=== PATIENT | female | born 1975 | race Caucasian/White ===

== ENCOUNTER → 2017-05-04 | Outpatient (CLI) | payer OTHER ==
--- NOTE | 2017-05-04 18:18 | CT ---
EXAMINATION TYPE: CT iac wo con DATE OF EXAM: 05/04/2017 COMPARISON: NONE HISTORY: Pre insertion Left sided cochlear implant CT DLP: 142.7mGycm Automated exposure control for dose reduction was used. FINDINGS: There is surgery on the right side in the right mastoid sinus with an implant. The external auditory canals are intact. There is mucosal thickening in the sphenoid sinus. I see no focal bone d estruction in the sphenoid sinus. Temporomandibular joints appear normal. There is normal aeration of the left mastoid sinus. There is bilateral normal aeration of the epitympanic recess. There is no sign of a cerebellopontine angle mas s. Internal auditory canals are symmetric. There is normal aeration of the middle ear cavity bilatera lly. IMPRESSION: Right sided cochlear implant. Sphenoid sinusitis. Otherwise negative exam. Implant is new compared to old CT scan of the brain of 10/27/2015.
== END | disposition home or self-care (01) ==
LOC: RADCTMAIN 17:08
PROVIDERS: ATTEND Otolaryngology
DX: J32.3 Chronic sphenoidal sinusitis (principal); Z96.21 Cochlear implant status
CPT/HCPCS: 70480

== ENCOUNTER → 2018-06-27 | Outpatient (CLI) | payer OTHER, MEDICARE ==
--- NOTE | 2018-06-27 10:28 | US ---
EXAMINATION TYPE: US pelvis complete transvag DATE OF EXAM: 06/27/2018 COMPARISON: NONE CLINICAL HISTORY: R10.2 Pelvic pain. Right side pain after intercourse TECHNIQUE: . Transabdominal sonographic images of the pelvis were acquired. Transvaginal sonographi c images were medically necessary to better assess the following anatomy: Uterus and ovaries Date of LMP: 06/26/2018 EXAM MEASUREMENTS: Uterus: 9.5 x 4.7 x 5.2 cm Endometrial Stripe: 0.6 cm Right Ovary: 3.1 x 2.4 x 2.0 cm Left Ovary: 2.5 x 2.8 x 1.1 cm 1. Uterus: Anteverted Heterogeneous myometrium 2. Endometrium: wnl 3. Right Ovary: Complex area visualized measuring 1.3 x 1.2 x 14 cm, possible hemorrhagic cyst vs ot her 4. Left Ovary: wnl 5. Bilateral Adnexa: wnl 6. Posterior cul-de-sac: wnl IMPRESSION: 1. Complex cyst right ovary may reflect hemorrhagic cyst. Lesion of other etiology not excluded. Foll ow-up study in 6 weeks is recommended.
== END | disposition home or self-care (01) ==
LOC: RADUSWWP 09:37
PROVIDERS: ATTEND Obstetrics & Gynecology
DX: N83.201 Unspecified ovarian cyst, right side (principal)
CPT/HCPCS: 76830; 76856

== ENCOUNTER → 2018-08-26 | Outpatient (CLI) | payer OTHER, MEDICARE ==
--- NOTE | 2018-08-26 10:59 | US ---
EXAMINATION TYPE: US pelvis complete transvag DATE OF EXAM: 08/26/2018 COMPARISON: June 27, 2018 CLINICAL HISTORY: N83.0 Previous ovarian cyst. no pain. abnormal bleeding. hx of ovarian cysts. TECHNIQUE: Transvaginal (TV) and Transabdominal (TA) . Transabdominal sonographic images of the pel vis were acquired. Transvaginal sonographic images were medically necessary to better assess the fol lowing anatomy: Endometrium Date of LMP: 08/18/2018, EXAM MEASUREMENTS: Uterus: 12.4 x 6.3 x 4.8 cm Endometrial Stripe: 0.9 cm Right Ovary: 3.7 x 2.1 x 2.2 cm Left Ovary: 3.0 x 1.5 x 1.0 cm 1. Uterus: Anteverted wnl 2. Endometrium: fluid seen. Echogenic vascular lesion- 1.1 x 0.7 x 0.6 cm 3. Right Ovary: Dominant follicle seen - 1.9 x 1.9 x 1.9 cm 4. Left Ovary: wnl 5. Bilateral Adnexa: wnl 6. Posterior cul-de-sac: no free fluid Cervix- fluid seen in cervical canal IMPRESSION: 1. Endometrial lesion suspected. Correlate with hysteroscopy. 2. Right ovarian dominant follicle
== END | disposition home or self-care (01) ==
LOC: RADUSWWP 10:05
PROVIDERS: ATTEND Obstetrics & Gynecology
DX: N83.01 Follicular cyst of right ovary (principal)
CPT/HCPCS: 76830; 76856

== ENCOUNTER 2018-10-08 11:26 | Day surgery (SDC) | payer MEDICARE, OTHER ==
[2018-10-04 15:27] VITALS: BMI 24.5
[~2018-10-08 11:26] MED LIST: DEXAMETHASONE SOD PHOSPHATE 10 MG/ML 1 ML VIAL IV ONE; HYDROmorphone 1 MG/ML 1 ML SYRINGE IVP PRN; LACTATED RINGERS 1,000 ML IV SCH; LIDOCAINE 1% 20 ML VIAL (10MG/ML) FOR IV START INTRADERMA PRN; MIDAZOLAM 2 MG/2 ML VIAL IV PRN; ONDANSETRON 4 MG/2 ML VIAL IVP ONE; Pre Op ABX Message 1 EACH MISC MISCELLANE ONE; fentaNYL (PF) 50 MCG/ML 2 ML AMP IV PRN
[2018-10-08] MEDS ORDERED: fentaNYL (PF) 50 MCG/ML 2 ML AMP ONE (13:19)
[2018-10-08] MEDS ORDERED: SUCCINYLCHOLINE CHLORIDE 100 MG/5 ML SYR IV ONE (13:19)
[2018-10-08] MEDS ORDERED: PROPOFOL 10 MG/ML 20 ML VIAL IV ONE (13:19)
[2018-10-08] MEDS ORDERED: LIDOCAINE 1% INJ 10MG/ML (20 ML MDV) ONE (13:19)
[2018-10-08] MEDS ORDERED: KETOROLAC 30 MG/ML 1 ML VIAL ONE (13:19)
[2018-10-08] MEDS ORDERED: MIDAZOLAM 2 MG/2 ML VIAL ONE (13:19)
--- NOTE | 2018-10-08 13:43 | P.OP ---
Date of Procedure: 10/08/18 Preoperative Diagnosis: Abnormal ultrasound Postoperative Diagnosis: Same with proliferative endometrium Procedure(s) Performed: D&C with hysteroscopy Anesthesia: JOSSUE Surgeon: Camron Gilbert Estimated Blood Loss (ml): 10 Pathology: other (Uterine curettings) Condition: stable Disposition: same day Operative Findings: Await final tissue pathology Description of Procedure: Patient was taken to the operating suite where a general anesthetic was found be adequate. She was prepped and draped in the normal sterile fashion and placed in dorsal lithotomy position. Initially a weighted speculum was inserted into the vagina and the anterior lip of the cervix was identified and grasped with a Allis clamp. It was then sounded to 9 cm. It did have a prolapsed to it and it prolapsed to the vaginal introitus. Once this was accomplished camera was inserted proliferative endometrium was noted, no other lesions could be visualized. She did start her period yesterday. Once this was completed camera was removed and sharp curettings of the endometrium were obtained. All this tissue was collected and placed on Telfa and sent to pathology for evaluation. All instruments were then removed. Sponge, lap, needle counts were all correct 2. Patient was then taken to the recovery room in stable and satisfactory condition. Plan - Discharge Summary New Discharge Prescriptions: No Action Omeprazole [PriLOSEC] 20 mg PO HS Discharge Medication List Omeprazole [PriLOSEC] 20 mg PO HS 10/04/18 [History] Follow up Appointment(s)/Referral(s): Camron Gilbert DO [Doctor of Osteopathic Medicine] - 1 Week Activity/Diet/Wound Care/Special Instructions: No heavy lifting, limit stairs and driving and pelvic rest today. If any high temperatures, heavy bleeding, or severe pain call my office Discharge Disposition: HOME SELF-CARE
[2018-10-08 14:05] VITALS: RESP 16; TEMP 97.8
[2018-10-08 15:51] VITALS: BP 112/69; PULSE 59
== END 2018-10-08 16:37 | disposition home or self-care (01) ==
LOC: OR 11:26
PROVIDERS: ATTEND Obstetrics & Gynecology
DX: N84.0 Polyp of corpus uteri (principal); F17.210 Nicotine dependence, cigarettes, uncomplicated; K21.9 Gastro-esophageal reflux disease without esophagitis; Z79.899 Other long term (current) drug therapy; Z88.5 Allergy status to narcotic agent; Z96.21 Cochlear implant status
CPT/HCPCS: 81025; 88305; 58558; J2250; J1100; J2405; J2001; J3010; J1885; J1170; J0330; J2704

== ENCOUNTER → 2018-11-01 | Outpatient (CLI) | payer MEDICARE ==
--- NOTE | 2018-11-01 12:48 | US ---
EXAMINATION TYPE: US pelvis complete transvag DATE OF EXAM: 11/01/2018 COMPARISON: CLINICAL HISTORY: R10.2 Pelvic pain. Irregular menses. D&C October 08 2018 TECHNIQUE: Transvaginal (TV) and Transabdominal (TA) . Transabdominal sonographic images of the pel vis were acquired. Transvaginal sonographic images were medically necessary to better assess the fol lowing anatomy: Endometrium Date of LMP: 10/29/2018, EXAM MEASUREMENTS: Uterus: 9.5 x 5.3 x 4.2 cm Endometrial Stripe: 0.2 cm Right Ovary: 3.3 x 2.3 x 1.3 cm Left Ovary: 2.8 x 1.5 x 1.0 cm 1. Uterus: Anteverted Appears heterogenous 2. Endometrium: wnl 3. Right Ovary: wnl, only seen transabdominally 4. Left Ovary: wnl, only seen transabdominally 5. Bilateral Adnexa: wnl 6. Posterior cul-de-sac: no free fluid IMPRESSION: 1. No distinct abnormality appreciated.
== END | disposition home or self-care (01) ==
LOC: RADUSWWP 08:45
PROVIDERS: ATTEND Obstetrics & Gynecology
DX: R10.2 Pelvic and perineal pain (principal)
CPT/HCPCS: 76830; 76856

== ENCOUNTER → 2021-10-31 | Outpatient (CLI) | payer BC, MEDICARE ==
--- NOTE | 2021-10-31 15:37 | US ---
EXAMINATION TYPE: US transvaginal DATE OF EXAM: 10/31/2021 COMPARISON: 11/01/2018 pelvic ultrasound. CLINICAL HISTORY: N92.1 MENORRHAGIA. Bleeding for 2 months TECHNIQUE: Transvaginal (TV). EXAM MEASUREMENTS: Uterus: 10.7 x 5.1 x 5.6 cm Endometrial Stripe: 1.6 cm Right Ovary: Not visualized due to excessive bowel gas Left Ovary: Not visualized due to excessive bowel gas 1. Uterus: Anteverted Appears heterogenous. Tiny Echogenic focus seen 0.29 cm lower uterine level suspect focal calcification 2. Endometrium: Appears bulky and abnormal. 3. Right Ovary: Obscured by overlying bowel gas 4. Left Ovary: Obscured by overlying bowel gas 5. Bilateral Adnexa: wnl 6. Posterior cul-de-sac: wnl IMPRESSION: Abnormal thickening to the endometrium. Consider dilatation and curettage to further eval uate.
== END | disposition home or self-care (01) ==
LOC: RADUSWWP 14:55
PROVIDERS: ATTEND Family Medicine
DX: R93.89 Abnormal findings on diagnostic imaging of other specified body structures (principal)
CPT/HCPCS: 76830

== ENCOUNTER 2025-02-02 08:30 | Emergency (ER) | payer BC, MEDICARE ==
[2025-02-02 08:45] VITALS: RESP 18
--- NOTE | 2025-02-02 08:56 | ED ---
Female Urogenital HPI - General Chief complaint: Urogenital Stated complaint: urogenital Time Seen by Provider: 02/02/25 08:47 Source: patient, family, RN notes reviewed Mode of arrival: ambulatory Limitations: language barrier - History of Present Illness Initial comments: This is a 49-year-old female who presents to the emergency department for left-sided pelvic pain. States that it started 2 days ago but seems to be getting progressively worse. She does have some radiation of pain into the back and associated nausea. When she has had pelvic pain in the past states that usually resolves with ibuprofen, however she did not get any relief from this. Denies any history of kidney stones or history of pain this severe in the past. MD Complaint: pelvic pain - Related Data Home Medications Medication Instructions Recorded Confirmed Ibuprofen [Motrin Ib] 800 mg PO Q8H PRN 02/02/25 02/02/25 Previous Rx's Medication Instructions Recorded Ketorolac [Toradol] 10 mg PO Q6HR PRN #15 tab 02/02/25 Ondansetron Odt [Zofran Odt] 4 mg PO Q8HR PRN #15 tab 02/02/25 Allergies Allergy/AdvReac Type Severity Reaction Status Date / Time codeine Allergy Rash/Hives Verified 02/02/25 11:00 Review of Systems ROS Statement: Those systems with pertinent positive or pertinent negative responses have been documented in the HPI. ROS Other: All systems not noted in ROS Statement are negative. Past Medical History Past Medical History: No Reported History Additional Past Medical History / Comment(s): cochlear implants, History of Any Multi-Drug Resistant Organisms: None Reported Past Surgical History: No Surgical Hx Reported Additional Past Surgical History / Comment(s): Cochlear implants, uterine ablation, Past Anesthesia/Blood Transfusion Reactions: No Reported Reaction Past Psychological History: No Psychological Hx Reported Smoking Status: Current every day smoker Past Alcohol Use History: None Reported Past Drug Use History: None Reported - Past Family History Mother Family Medical History: CVA/TIA General Exam Limitations: language barrier General appearance: alert, in distress Respiratory exam: Present: normal lung sounds bilaterally. Absent: respiratory distress, wheezes, rales, rhonchi, stridor Cardiovascular Exam: Present: regular rate, normal rhythm GI/Abdominal exam: Present: soft, tenderness (Left pelvic). Absent: distended Neurological exam: Present: alert, oriented X3, CN II-XII intact Psychiatric exam: Present: normal affect, normal mood Skin exam: Present: warm, dry, intact, normal color. Absent: rash Course Vital Signs 02/02/25 02/02/25 08:39 14:08 Temperature 97.6 F 98.2 F Pulse Rate 69 66 Respiratory 18 18 Rate Blood Pressure 110/74 118/67 O2 Sat by Pulse 97 98 Oximetry Medical Decision Making - Medical Decision Making This is a 49 year old female who presents to the emergency department for left sided abdominal/pelvic pain. Was pt. sent in by a medical professional or institution? @ -No Did you speak to anyone other than the patient for history? @ -No Did you review nursing and triage notes? @ -Yes, and I agree, it is accurate with regards to the patient's symptoms. Were old charts reviewed? @ -No Differential Diagnosis? @ -Differential Abdominal Pain Women: Appendicitis, Cholecystitis, diverticulosis, ischemic bowel, pancreatitis, hepatitis, UTI, gastroenteritis, AAA, incarcerated hernia, bowel obstruction, constipation, inflammatory bowel, hepatitis, peptic ulcer disease, splenic infarction, perforated viscus, vulvitis, ovarian torsion, PID, kidney stone, placenta abruption, this is not meant to be an all-inclusive list EKG interpreted by me (3pts min.)? @ -Not obtained X-rays interpreted by me (1pt min.)? @ -Not obtained CT interpreted by me (1pt min.)? @ -CT scan of the abdomen and pelvis obtained. My interpretation identifies fat stranding in the left lower quadrant. U/S interpreted by me (1pt. min.)? @ -Transvaginal ultrasound obtained. My interpretation identifies no evidence of an ovarian torsion. What testing was considered but not performed? (CT, X-rays, U/S, labs)? Why? @ -None What meds were considered but not given? Why? @ -None Did you discuss the management of the patient with other professionals? @ -Yes, Dr. Anderson, [employer], who advised that the CT findings are likely related to a ruptured hemorrhagic cyst and this should resolve on its own in the next couple of days. He advised NSAIDs for treatment. Did you reconcile home meds? @ -No Was smoking cessation discussed for >3mins.? @ -I discussed smoking cessation for greater than 3 minutes. The risk of smoking were discussed with the patient including but not limited to risks of cancer, stroke, coronary artery disease and COPD. Also discussed with patient were multiple methods of quitting smoking. Lastly we discussed the financial cost of smoking. Was critical care preformed (if so, how long)? @ -No Were there social determinants of health that impacted care today? How? (Homelessness, low income, unemployed, alcoholism, drug addiction, transportation, low edu. Level, literacy, decrease access to med. care, long term, rehab)? @ -No Was there de-escalation of care discussed even if they declined? (Discuss DNR or withdrawal of care, Hospice)? @ -No What co-morbidities impacted this encounter? (DM, HTN, Smoking, COPD, CAD, Cancer, CVA, Hep., AIDS, mental health diagnosis, sleep apnea, morbid obesity)? @ -Smoking Was patient admitted / discharged? @ -Discharged. I had wanted to give the patient IV pain medication and fluids, however she declined an IV or any IM medication. However she was agreeable to the lab work. Lab work unremarkable. Urinalysis demonstrates occasional bacteria and large leukocyte esterase, however it is grossly contaminated. Transvaginal ultrasound obtained revealing a simple right-sided ovarian cyst and a thickened endometrium. However, there is nothing to explain the left-sided pain. She did continue to be in severe pain and a CT scan was subsequently obtained. This identified complex fluid in the posterior cul-de-sac with fat stranding changes in the left lower quadrant surrounding the left ovary and colon. They advised the possibility of a ruptured hemorrhagic ovarian cyst versus inflammation/infectious changes. Case discussed with Dr. Anderson, [employer], who advised that it is likely related to a ruptured ovarian cyst and symptoms should improve in a couple of days. He advised NSAIDs as the best treatment option. This was discussed with the patient who is in agreement with this plan. Rx for Toradol and Zofran provided with dosing instructions reviewed. Advised follow up with her [employer] if symptoms do not improve. Patient discharged home in stable condition. Case discussed with ED attending, Dr. Chery. Return precautions reviewed in depth, the patient is instructed to return to the emergency department with any new, worsening, or concerning symptoms. Patient verbalized understanding. Undiagnosed new problem with uncertain prognosis? @ -None Drug Therapy requiring intensive monitoring for toxicity (Heparin, Nitro, Insulin, Cardizem)? @ -None Were any procedures done? @ -None Diagnosis/symptom? @ -Ruptured hemorrhagic ovarian cyst Acute, or Chronic, or Acute on Chronic? @ -Acute Uncomplicated (without systemic symptoms) or Complicated (systemic symptoms)? @ -Uncomplicated Side effects of treatment? @ -None Exacerbation, Progression, or Severe Exacerbation] @ -Not applicable Poses a threat to life or bodily function? @ -No - Lab Data Result diagrams: 02/02/25 09:45 02/02/25 09:45 Lab Results 02/02/25 02/02/25 02/02/25 Range/Units 09:45 09:45 09:45 WBC 8.1 (3.8-10.6) k/uL RBC 4.57 (3.80-5.40) m/uL Hgb 13.7 (11.4-16.0) gm/dL Hct 41.9 (34.0-46.0) % MCV 91.8 (80.0-100.0) fL MCH 30.0 (25.0-35.0) pg MCHC 32.6 (31.0-37.0) g/dL RDW 12.5 (11.5-15.5) % Plt Count 243 (150-450) k/uL MPV 7.9 Neutrophils % 77 % Lymphocytes % 18 % Monocytes % 3 % Eosinophils % 1 % Basophils % 0 % Neutrophils # 6.2 (1.3-7.7) k/uL Lymphocytes # 1.4 (1.0-4.8) k/uL Monocytes # 0.3 (0-1.0) k/uL Eosinophils # 0.1 (0-0.7) k/uL Basophils # 0.0 (0-0.2) k/uL Sodium 136 L (137-145) mmol/L Potassium 4.2 (3.5-5.1) mmol/L Chloride 106 (98-107) mmol/L Carbon Dioxide 23 (22-30) mmol/L Anion Gap 7 mmol/L BUN 9 (7-17) mg/dL Creatinine 0.54 (0.52-1.04) mg/dL Est GFR (CKD-EPI)AfAm >90 (>60 ml/min/1.73 sqM) Est GFR (CKD-EPI)NonAf >90 (>60 ml/min/1.73 sqM) Glucose 92 (74-99) mg/dL Plasma Lactic Acid Eben (0.7-2.0) mmol/L Calcium 9.2 (8.4-10.2) mg/dL Total Bilirubin 1.4 H (0.2-1.3) mg/dL AST 14 (14-36) U/L ALT 9 (4-34) U/L Alkaline Phosphatase 56 (38-126) U/L Total Protein 6.8 (6.3-8.2) g/dL Albumin 3.8 (3.5-5.0) g/dL HCG, Quant <2.4 mIU/mL Urine Color Light Yellow Urine Appearance Cloudy H (Clear) Urine pH 6.0 (5.0-8.0) Ur Specific Wall 1.020 (1.001-1.035) Urine Protein Negative (Negative) Urine Glucose (UA) Negative (Negative) Urine Ketones Negative (Negative) Urine Blood Negative (Negative) Urine Nitrite Negative (Negative) Urine Bilirubin Negative (Negative) Urine Urobilinogen <2.0 (<2.0) mg/dL Ur Leukocyte Esterase Large H (Negative) Urine WBC 2 (0-5) /hpf Ur Squamous Epith Cells 20 H (0-4) /hpf Urine Bacteria Occasional H (None) /hpf Urine Mucus Many H (None) /hpf 02/02/25 Range/Units 09:45 WBC (3.8-10.6) k/uL RBC (3.80-5.40) m/uL Hgb (11.4-16.0) gm/dL Hct (34.0-46.0) % MCV (80.0-100.0) fL MCH (25.0-35.0) pg MCHC (31.0-37.0) g/dL RDW (11.5-15.5) % Plt Count (150-450) k/uL MPV Neutrophils % % Lymphocytes % % Monocytes % % Eosinophils % % Basophils % % Neutrophils # (1.3-7.7) k/uL Lymphocytes # (1.0-4.8) k/uL Monocytes # (0-1.0) k/uL Eosinophils # (0-0.7) k/uL Basophils # (0-0.2) k/uL Sodium (137-145) mmol/L Potassium (3.5-5.1) mmol/L Chloride (98-107) mmol/L Carbon Dioxide (22-30) mmol/L Anion Gap mmol/L BUN (7-17) mg/dL Creatinine (0.52-1.04) mg/dL Est GFR (CKD-EPI)AfAm (>60 ml/min/1.73 sqM) Est GFR (CKD-EPI)NonAf (>60 ml/min/1.73 sqM) Glucose (74-99) mg/dL Plasma Lactic Acid Eben 1.0 (0.7-2.0) mmol/L Calcium (8.4-10.2) mg/dL Total Bilirubin (0.2-1.3) mg/dL AST (14-36) U/L ALT (4-34) U/L Alkaline Phosphatase (38-126) U/L Total Protein (6.3-8.2) g/dL Albumin (3.5-5.0) g/dL HCG, Quant mIU/mL Urine Color Urine Appearance (Clear) Urine pH (5.0-8.0) Ur Specific Wall (1.001-1.035) Urine Protein (Negative) Urine Glucose (UA) (Negative) Urine Ketones (Negative) Urine Blood (Negative) Urine Nitrite (Negative) Urine Bilirubin (Negative) Urine Urobilinogen (<2.0) mg/dL Ur Leukocyte Esterase (Negative) Urine WBC (0-5) /hpf Ur Squamous Epith Cells (0-4) /hpf Urine Bacteria (None) /hpf Urine Mucus (None) /hpf - Radiology Data Radiology results: report reviewed, image reviewed Disposition Clinical Impression: Ruptured cyst of left ovary, Hemorrhagic cyst of left ovary, Nicotine depend ence Disposition: HOME SELF-CARE Instructions (If sedation given, give patient instructions): Ovarian Cyst (ED), Ruptured Ovarian Cyst (ED) Additional Instructions: Return to the emergency department with any new, worsening, or concerning symptoms. Take the Toradol with Tylenol as needed for pain relief. If you choose to take the Toradol, do not take any other anti-inflammatories such as ibuprofen, take one or the other. Take the Zofran up to every 8 hours as needed for nausea and vomiting. Contact Dr. Anderson for a follow-up appointment if your symptoms do not improve. Prescriptions: Ketorolac [Toradol] 10 mg PO Q6HR PRN #15 tab PRN Reason: Pain Ondansetron Odt [Zofran Odt] 4 mg PO Q8HR PRN #15 tab PRN Reason: Nausea And Vomiting Is patient prescribed a controlled substance at d/c from ED?: No Referrals: Brandon Berkowitz DO [Primary Care Provider] - 1-2 days Time of Disposition: 13:47
[2025-02-02] MEDS: HYDROmorphone 0.5 MG/0.5 ML SYRINGE IVP STA (09:47)
[2025-02-02] MEDS: ONDANSETRON 4 MG/2 ML VIAL IVP STA (09:47)
[2025-02-02] MEDS: KETOROLAC 15 MG/ML 1 ML VIAL IVP STA (09:47)
[2025-02-02] MEDS: LORazepam 1 MG TAB PO STA (09:48)
[2025-02-02] MEDS: SODIUM CHLORIDE 0.9% 1,000 ML IV ONE (09:48)
[2025-02-02 09:55] LABS: Basophils % (A) 0 %; Eosinophils # (A) 0.1 k/uL (0-0.7); Eosinophils % (A) 1 %; HCT 41.9 % (34.0-46.0); HGB 13.7 gm/dL (11.4-16.0); Lymphocytes # (A) 1.4 k/uL (1.0-4.8); Lymphocytes % (A) 18 %; MCHC 32.6 g/dL (31.0-37.0); MCV 91.8 fL (80.0-100.0); Mean Platelet Volume 7.9; Monocytes # (A) 0.3 k/uL (0-1.0); Monocytes % (A) 3 %; Neutrophils # (A) 6.2 k/uL (1.3-7.7); Neutrophils % (A) 77 %; Platelet Count 243 k/uL (150-450); RBC 4.57 m/uL (3.80-5.40); RDW 12.5 % (11.5-15.5); WBC 8.1 k/uL (3.8-10.6)
--- NOTE | 2025-02-02 09:59 | US ---
EXAMINATION TYPE: US transvaginal DATE OF EXAM: 02/02/2025 COMPARISON: CLINICAL INDICATION: Female, 49 years old with history of Left sided pelvic pain; Left side pain, hx endometrial ablation March 2024. TECHNIQUE: Transvaginal (TV). Transvaginal grayscale sonographic images of the pelvis were acquired. Doppler imaging: Color Doppler Images were obtained. Spectral doppler images were obtained. FINDINGS: Date of LMP: 08/2024, EXAM MEASUREMENTS: Uterus: 9.1 x 5.3 x 2.6 cm Endometrial Stripe: 1.4 cm Right Ovary: 3.8 x 2.6 x 2.0 cm Left Ovary: 2.1 x 0.9 x 1.0 cm 1. Uterus: Anteverted Heterogenous 2. Endometrium: Appears thickened and heterogenous 3. Right Ovary: Anechoic lesion = 2.6 x 2.6 x 2.0 cm 4. Left Ovary: wnl Spectral, color and waveform doppler imaging shows good arterial and venous flow within the ovaries ; there is no evidence for ovarian torsion. 5. Bilateral Adnexa: no free fluid 6. Posterior cul-de-sac: trace free fluid seen IMPRESSION: 1. Thickened endometrium. 2. Simple appearing cyst right ovary. O-RADS 2021 [email or web address] [facility], , 02/02/2025 9:57 AM
[2025-02-02 10:11] LABS: ALT 9 U/L (4-34); AST 14 U/L (14-36); African American GFR (CKD) >90 (>60 ml/min/1.73 sqM); Albumin 3.8 g/dL (3.5-5.0); Alkaline Phosphatase 56 U/L (38-126); Anion Gap 7 mmol/L; Blood Urea Nitrogen 9 mg/dL (7-17); Calcium 9.2 mg/dL (8.4-10.2); Carbon Dioxide 23 mmol/L (22-30); Chloride 106 mmol/L (98-107); Glucose 92 mg/dL (74-99); Non-African American GFR(CKD) >90 (>60 ml/min/1.73 sqM); Potassium 4.2 mmol/L (3.5-5.1); Sodium 136 mmol/L (137-145); Total Bilirubin 1.4 mg/dL (0.2-1.3); Total Protein 6.8 g/dL (6.3-8.2)
[2025-02-02 10:25] LABS: HCG,Quantitative Serum <2.4 mIU/mL
[2025-02-02 12:12] LABS: Appearance,Urine Cloudy (Clear); Bacteria,Urine Occasional /hpf; Bilirubin,Urine Negative (Negative); Blood,Urine Negative (Negative); Color,Urine Light Yellow; Glucose,Urine (UA) Negative (Negative); Ketones,Urine Negative (Negative); Leukocyte Esterase,Urine Large (Negative); Mucus,Urine Many /hpf; Nitrite,Urine Negative (Negative); Protein,Urine Negative (Negative); Squamous Epithelial Cell,Urine 20 /hpf (0-4); Urobilinogen,Urine <2.0 mg/dL (<2.0); WBC,Urine 2 /hpf (0-5)
[2025-02-02] MEDS: IBUPROFEN 800 MG TAB PO STA (12:19)
[2025-02-02] MEDS: ONDANSETRON ODT 4 MG TAB PO STA (12:20)
[2025-02-02] MEDS: oxyCODONE-APAP 7.5-325MG 1 EACH TAB PO STA (12:20)
--- NOTE | 2025-02-02 13:27 | CT ---
EXAMINATION TYPE: CT abdomen pelvis wo con CT DLP: 588.7 mGycm, Automated exposure control for dose reduction was used. DATE OF EXAM: 02/02/2025 1:11 PM COMPARISON: Ultrasound transvaginal 02/02/2025, 10/31/2021, pelvic ultrasound 11/01/2018, 08/26/2018, 2017 CLINICAL INDICATION:Female, 49 years old with history of LLQ pain; LLQ pain. TECHNIQUE: Standard CT of the abdomen and pelvis without IV or oral contrast. Lack of IV or oral co ntrast limits evaluation of solid and hollow organ viscera. Coronal and sagittal reformats were perfo rmed. FINDINGS: LOWER CHEST: Minimal posterior dependent subsegmental atelectasis is noted. ABDOMEN LIVER: Unremarkable noncontrast appearance GALLBLADDER AND BILE DUCTS: Unremarkable noncontrast appearance PANCREAS: Unremarkable noncontrast appearance SPLEEN: Unremarkable noncontrast appearance ADRENAL GLANDS: Unremarkable noncontrast appearance. KIDNEYS AND URETERS: No evidence of hydronephrosis or renal calculus. . PELVIS BLADDER: Incompletely distended but grossly unremarkable. REPRODUCTIVE: Anteverted uterus. Fat stranding changes surrounding the left ovary. ABDOMEN & PELVIS STOMACH AND BOWEL: Stomach and duodenum are unremarkable. The appendix is within normal limits. No fo hubert bowel wall thickening. Fat stranding changes within the left lower quadrant adjacent to the desce nding colon/sigmoid junction. No evidence of bowel obstruction. PERITONEUM: No evidence of pneumoperitoneum. Trace amount of hyperdense fluid identified within the p osterior pelvic cul-de-sac. VASCULATURE: No evidence of aortic aneurysm. Couple of pelvic phleboliths. MUSCULOSKELETAL: No acute osseous abnormalities LYMPH NODES: No gross evidence for lymphadenopathy. SOFT TISSUE/ABDOMINAL WALL: Small fat filled umbilical hernia. IMPRESSION: Trace amount of complex fluid likely representing blood products within the posterior pelvic cul-de-s ac with fat stranding changes within the left lower quadrant surrounding the left ovary and sigmoid/d escending colon junction. Etiologies include ruptured hemorrhagic cyst versus inflammation/infectious changes involving the left ovary and/or colon. No organized fluid collection to suggest abscess. [facility], , 02/02/2025 1:25 PM
[2025-02-02 14:09] VITALS: BP 118/67; PULSE 66; TEMP 98.2
== END 2025-02-02 14:21 | disposition home or self-care (01) ==
LOC: EC 08:30
DX: N83.202 Unspecified ovarian cyst, left side (principal); F17.200 Nicotine dependence, unspecified, uncomplicated; Z88.5 Allergy status to narcotic agent
CPT/HCPCS: 36415; 74176; 76830; 80053; 81001; 83605; 84702; 85025; 93975; 99284; 99406